=== PATIENT | male | born 1980 | race Caucasian/White ===

== ENCOUNTER 2024-05-04 08:13 | Emergency (ER) | payer BC, SELFPAY ==
[2024-05-04 08:15] VITALS: BP 143/108
--- NOTE | 2024-05-04 08:49 | ED.MUSCINJ ---
HPI-Injury
General
Chief Complaint: Musculo-Skeletal Complaint
Source: patient
Exam Limitations: none
Time Seen by Provider: 05/04/24 08:30
Nursing documentation reviewed up to this point in time: agreed with
History of Present Illness-Injury
Initial Injury comments:
43 yo male with gradually increasing right shoulder pain 2 days after helping a friend cut down a tree and having a catch with his son.
Past History
Past History
ED Past Medical History: None
ED Past Surgical History: None
Social History
Tobacco: Non-smoker
Alcohol: None
Personal:
Living: with family
Employment: Employed (construction)
Review of Systems
Review of Systems
Allergies reviewed?: Yes
All Other Systems: ROS reviewed and negative except as documented in HPI and ROS
Musculoskeletal: Reports other (right shoulder pain); Denies neck pain or back pain
Skin: Reports no symptoms
Neurological: Denies weakness or numbness
Musculoskeletal Injury Exam
Musculoskeletal Injury Exam
Right Shoulder:
Pain with Movement?: Moderate
Tender to palpation?: Moderate
Soft tissue swelling?: None
Strain- Sprain- Tear (Connective tissue injury)?: Moderate
Joint instability?: No
Malalignment/deformity?: No
Range of motion: Limited
Distal skin color and temperature: normal-warm & good color
Capillary Refill: normal
Normal distal neurovascular exam?: Yes
Phy Exam
Physical Exam
Physical Exam:
PHYSICAL EXAMINATION:
General: no apparent distress, not acutely ill
Neuro: alert and oriented.
Psychiatric: well kept. interactive and cooperative
Musculoskeletal: Moves with ease
Skin: Warm, pink.
Injury Course
Orders/Labs/Results
Orders:
Orders
05/04/24 08:17
Shoulder, Right, Trauma [CR Shoulder, Trauma - Right] Urgent
Comment:
Reason For Exam: pain
MDM/Problems Addressed
Differential Diagnosis Includes:
bursitis, calcific tendinitis, torn labrum
MDM/Problems Addressed:
43 yo male with gradually increasing right shoulder pain 2 days after helping a friend cut down a tree and having a catch with his son.
Xray right shoulder initially read by this examiner: No acute abnormality noted
*Critical Care Note
Total Time (30-74mins, 75-104mins- exclusive of procedures): Not Applicable
ED Attending Note
-
Portions of this chart may have been created with voice recognition software.� Occasional wrong word or��sound alike� substitutions may have occurred due to the inherent limitations of voice recognition software.
Discharge Plan
Departure
Patient Disposition: Home (Routine Discharge)
Date of Disposition: 05/04/24
Time of Disposition: 09:30
Patient with high blood pressure during this ER visit?: No
Condition: Good
Discharge Problem:
Acute bursitis of right shoulder
Instructions: Shoulder Bursitis Exercises, Bursitis ED
Prescriptions:
New
prednisone 20 mg tablet
40 mg PO DAILY Qty: 8 0RF
Referrals:
Jayson Vyas MD [Active] - As needed
Stand Alone Forms: Return to Work
Activity Restrictions/Additional Instructions:
As we discussed, I am treating you for bursitis. Warm or cold compress 20 minutes off and on for next 2 days if it helps.
Move the shoulder more and more as comfort permits to avoid a frozen shoulder
It may take a day or two for the steroid to kick in.
You may take Ibuprofen 600 mg (with food) every 6 hours if needed for pain.
See the orthopedic doctor if not a LOT better in one week or not 100% better in 3 weeks.
Interventions
Interventions:
*Risk Screen - Suicide Last Done: 05/04/24 08:15
*General Assessment Last Done: 05/04/24 08:15
*Neglect/Abuse Screening Last Done: 05/04/24 08:15
*ED- Fall Risk Assessment Last Done: 05/04/24 09:26
*ED COVID-19 Vaccine History Last Done: 05/04/24 09:26
*Nursing Disposition Last Done: 05/04/24 09:41
ED-Musculoskeletal Assessment Last Done: 05/04/24 09:26
Discharge Date and Time
Discharge Date/Time: 05/04/24 09:41
Print Language: SLOVAK
[2024-05-04 09:26] VITALS: BP 134/85
== END 2024-05-04 09:41 | disposition home or self-care (01) ==
LOC: EMR 08:13
PROVIDERS: EMERGENCY PHYSICIAN Student in an Organized Health Care Education/Training Program; FAMILY PHYSICIAN Family Medicine
DX: M75.51 Bursitis of right shoulder (principal)
CPT/HCPCS: 99283; 73030